=== PATIENT | male | born 1995 | race Two or more races ===

== ENCOUNTER 2024-01-12 18:01 | Emergency (ER) | payer OTHER ==
[~2024-01-12] VITALS: Ht 175.3 cm; Wt 90.9 kg
[2024-01-12 18:04] VITALS: BP 144/71; PULSE 101; RESP 18; TEMP 98.2; O2SAT 99
[2024-01-12] MEDS: METHOCARBAMOL 500 MG TABLET PO ONE (20:38)
[2024-01-12] MEDS: KETOROLAC TROMETHAMINE 60 MG/2 ML VIAL IM ONE (20:39)
[2024-01-12] MEDS: HYDROmorphone HCL 2 MG/ML SYRINGE IM ONE (20:39)
[2024-01-12] MEDS: ONDANSETRON HCL 4 MG/2 ML VIAL IM ONE (20:39)
[2024-01-12] MEDS ORDERED: IBUP-1554 PO (21:56)
[2024-01-12] MEDS ORDERED: METH-812 PO (21:56)
[2024-01-12] MEDS ORDERED: HYDR-4072 PO (21:56)
== END 2024-01-12 23:57 | disposition home or self-care (01) ==
LOC: EMS 18:01
DX: S70.02XA Contusion of left hip, initial encounter (principal); S20.222A Contusion of left back wall of thorax, initial encounter; W01.0XXA Fall on same level from slipping, tripping and stumbling without subsequent striking against object, initial encounter; Y93.89 Activity, other specified; Y92.89 Other specified places as the place of occurrence of the external cause; Y99.8 Other external cause status
CPT/HCPCS: 99285; 72100; 73503; 76870; 96372; J1171; J1885; J2405

== ENCOUNTER 2024-06-06 22:09 | Emergency (ER) | payer OTHER ==
[~2024-06-06] VITALS: Ht 180.3 cm; Wt 84.1 kg
[~2024-06-06 22:09] MED LIST: HYDR-4072 PO; IBUP-1554 PO; METH-812 PO
[2024-06-06 22:22] VITALS: TEMP 98.4
[2024-06-06] MEDS ORDERED: BUPR-344 PO (22:25)
[2024-06-07] MEDS: LIDOCAINE 1% 10 ML VIAL ID ONE (00:39)
[2024-06-07] MEDS: IBUPROFEN 400 MG TABLET PO ONE (00:46)
[2024-06-07] MEDS: ACETAMINOPHEN 500 MG TABLET PO ONE (00:47)
[2024-06-07] MEDS ORDERED: DOXY-354 PO (00:55)
[2024-06-07] MEDS: DOXYCYCLINE HYCLATE 100 MG TABLET PO ONE (01:04)
[2024-06-07 01:05] VITALS: BP 140/75; PULSE 92; RESP 18; O2SAT 97
== END 2024-06-07 01:26 | disposition home or self-care (01) ==
LOC: EMS 22:16
DX: L02.411 Cutaneous abscess of right axilla (principal); F32.A Depression, unspecified; Z79.899 Other long term (current) drug therapy
CPT/HCPCS: 99284; 10060; J3490

== ENCOUNTER 2024-06-30 11:28 | Emergency (ER) | payer OTHER ==
[~2024-06-30] VITALS: Ht 172.7 cm; Wt 84.5 kg
[~2024-06-30 11:28] MED LIST changes: +BUPR-344 PO; +DOXY-354 PO; -HYDR-4072 PO; -IBUP-1554 PO; -METH-812 PO
[2024-06-30 11:31] VITALS: BP 108/60; PULSE 72; RESP 18; TEMP 97.9; O2SAT 100
[2024-06-30 11:56] LABS: BASOPHILS % (AUTO) 0.4 % (0.0-2.0); EOSINOPHILS % (AUTO) 0.3 % (1.0-6.0); HEMATOCRIT 49.6 % (41-53); HEMOGLOBIN 16.7 g/dL (13.5-17.5); LYMPHOCYTES # (AUTO) 1.5 K/uL (1.0-4.8); LYMPHOCYTES % (AUTO) 10.2 % (22.0-44.0); MEAN CORPUSCULAR HGB CONC 33.7 G/dL (31.0-37.0); MEAN CORPUSCULAR VOLUME 92 fL (80-100); MONOCYTES # (AUTO) 0.9 K/uL (0.1-1.0); NEUTROPHILS # (AUTO) 12.5 K/uL (1.8-7.7); NEUTROPHILS % (AUTO) 83.1 % (40.0-70.0); PLATELET COUNT (AUTO) 375 K/uL (150-450); RED CELL DISTRIBUTION WIDTH 12.9 % (11.5-14.5)
[2024-06-30 12:05] LABS: ANION GAP 12 mmol/L (8-16); CALCIUM, TOTAL 9.2 mg/dL (8.8-10.5); CARBON DIOXIDE 24 mmol/L (22-29); CHLORIDE 103 mmol/L (98-107); CREATININE 0.74 mg/dL (0.60-1.30); GLOMERULAR FILTR. RATE CALC > 60 mL/min (>60); GLUCOSE,RANDOM 130 mg/dL (70-110); LIPASE 18 U/L (16-77); POTASSIUM 3.5 mmol/L (3.5-5.1); SODIUM SERUM 139 mmol/L (136-145); UREA NITROGEN, BLOOD 8 mg/dL (7-18)
[2024-06-30 13:09] LABS: APPEARANCE,URINE CLEAR (CLEAR); BILIRUBIN,URINE NEGATIVE (NEGATIVE); COLOR,URINE YELLOW (YELLOW); GLUCOSE, URINE (UA) NEGATIVE (NEGATIVE); KETONES,URINE TRACE mg/dL (NEGATIVE); LEUKOCYTE ESTERASE ,URINE NEGATIVE (NEGATIVE); NITRATE,URINE NEGATIVE (NEGATIVE); OCCULT BLOOD,URINE NEGATIVE (NEGATIVE); PH,URINE 6.5 (5.0-8.0); PROTEIN,URINE 30-70 mg/dL (NEGATIVE); SPECIFIC GRAVITIY, URINE 1.035 (1.003-1.030); UROBILINOGEN,URINE <=1.0 mg/dL (<=1.0)
[2024-06-30] MEDS: SODIUM CHLORIDE 0.9% 1,000 ML IV ONE (13:20)
[2024-06-30] MEDS: ONDANSETRON HCL 4 MG/2 ML VIAL IVP ONE (13:23)
[2024-06-30] MEDS ORDERED: IOHEXOL 350 MG/ML 100 ML VIAL ONE (14:09)
[2024-06-30] MEDS ORDERED: SODIUM CHLORIDE 0.9% 100 ML ONE (14:09)
[2024-06-30 14:28] LABS: ALBUMIN 3.9 g/dL (3.4-5.0); BILIRUBIN,DIRECT 0.2 mg/dL (0.00-0.20); BILIRUBIN,TOTAL 0.7 mg/dL (0.1-1.0); TOTAL PROTEIN, SERUM 7.3 g/dL (6.4-8.2)
== END 2024-06-30 17:27 | disposition left against medical advice (07) ==
LOC: EMS 11:30
DX: R10.84 Generalized abdominal pain (principal); R11.2 Nausea with vomiting, unspecified; R19.7 Diarrhea, unspecified; F32.A Depression, unspecified; F12.90 Cannabis use, unspecified, uncomplicated; Z79.899 Other long term (current) drug therapy
CPT/HCPCS: 99285; 74177; 96374; 96361; 80048; 80076; 81003; 83690; 85025; 36415; Q9967; J2405; J7030; J7050

== ENCOUNTER 2024-07-28 22:32 | Emergency (ER) | payer OTHER ==
[~2024-07-28] VITALS: Ht 177.8 cm; Wt 81.8 kg
[2024-07-28 22:54] VITALS: BP 126/88; PULSE 98; RESP 20; TEMP 98.4; O2SAT 100
== END 2024-07-29 00:57 | disposition left against medical advice (07) ==
LOC: EMS 22:33
DX: F60.0 Paranoid personality disorder (principal); Z53.21 Procedure and treatment not carried out due to patient leaving prior to being seen by health care provider